=== PATIENT | male | born 2000 | race American Indian/Alaskan Native ===

== ENCOUNTER 2019-06-04 13:51 | Emergency (ER) | payer OTHER ==
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
[2019-06-04 14:00] VITALS: BP 138/74
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
== END 2019-06-04 15:59 | disposition home or self-care (01) ==
LOC: ED 13:51
DX: S39.012A Strain of muscle, fascia and tendon of lower back, initial encounter (principal); S80.01XA Contusion of right knee, initial encounter; V89.2XXA Person injured in unspecified motor-vehicle accident, traffic, initial encounter; Y93.89 Activity, other specified; Y92.410 Unspecified street and highway as the place of occurrence of the external cause; Y99.8 Other external cause status
CPT/HCPCS: 72100